=== PATIENT | male | born 1955 | race Caucasian/White ===

== ENCOUNTER 2022-08-24 10:16 | Emergency (ER) | payer MEDICARE, OTHER, SELFPAY ==
[2022-08-24] VITALS (19 sets, daily range): BP systolic 136–171; BP diastolic 70–90; PULSE 58–80; RESP 14; TEMP 36.4; O2SAT 94–100; BMI 19.3
--- NOTE | 2022-08-24 10:22 | DI.CT.S_ITS ---
PROCEDURE: CT CERVICAL SPINE WO CON INDICATIONS: fall head injury,on eliquis TECHNIQUE: Noncontrast 3 mm thick sections acquired from the skull base to the T4 level. Sagittal and coronal reformats were then constructed. For radiation dose reduction, the following was used: automated exposure control, adjustment of mA and/or kV according to patient size. COMPARISON: None. FINDINGS: Image quality: Excellent. Bones: No fractures or dislocations. Visualized superior ribs are intact. Soft tissues: Prevertebral soft tissues are normal in thickness. No paravertebral hematomas. No apical pneumothoraces. IMPRESSION: No acute, displaced fracture or traumatic subluxation. Dictated by: Bony Bell M.D. on 08/24/2022 at 11:00 Approved by: Bony Bell M.D. on 08/24/2022 at 11:02
--- NOTE | 2022-08-24 10:22 | DI.CT.S_ITS ---
PROCEDURE: CT HEAD/BRAIN WO CON INDICATIONS: fall head injury,on eliquis TECHNIQUE: Noncontrast 4.5 mm thick angled axial sections acquired from the foramen magnum to the vertex, with coronal and sagittal reformats. For radiation dose reduction, the following was used: automated exposure control, adjustment of mA and/or kV according to patient size. COMPARISON: None. FINDINGS: Image quality: Excellent. CSF spaces: Basal cisterns are patent. No extra-axial fluid collections. Ventricles are normal in size and shape. Symmetric mild thickening of the anterior tentorium, likely artifact. Brain: No midline shift. No intracranial masses or hemorrhage. Tamayo-white matter interface is normal. Skull and face: Calvarium and visualized facial bones are intact, without suspicious lesions. Scalp contusion along the posterior calvarium. Sinuses: Trace layering fluid in the left maxillary sinus. IMPRESSION: Symmetric mild thickening of the anterior tentorium, possibly artifact. Tiny subdural hemorrhage is less likely. Consider interval CT in 4 hours, unless otherwise indicated. Posterior scalp contusion without underlying fracture. Dictated by: Bony Bell M.D. on 08/24/2022 at 10:53 Approved by: Bony Bell M.D. on 08/24/2022 at 11:00
--- NOTE | 2022-08-24 10:38 | ED_ITS ---
HPI - Head Injury <CARRIE Khalil - Last Filed: 08/31/22 11:12> General Chief complaint: Head Injury Stated complaint: fall, on Eliqus Time Seen by Provider: 08/24/22 10:36 Source: patient Mode of arrival: Ambulatory History of Present Illness HPI Narrative: This is a 67-year-old gentleman with history of atrial fibrillation and is anticoagulated on Eliquis who was outside playing pickleball when he fell backwards striking the posterior of his head on the ground. He denies loss of consciousness, midline neck pain, nausea, vomiting. He states that he has a wound on his scalp with a dressing covering it, but is no longer bleeding. He endorses some right-sided muscle pain. States that it was witnessed by lots of people unfortunately. He denies any weakness, numbness, tingling, fatigue, brain fog, vision changes, nausea or other changes at this time. States the only thing that is hurt is his pride and where he hit his head. He states that it bled quite a bit. Related Data Allergies Allergy/AdvReac Type Severity Reaction Status Date / Time No Known Drug Allergies Allergy Verified 08/24/22 10:23 Review of Systems <CARRIE Khalil - Last Filed: 08/31/22 11:12> Review of Systems ROS Unobtainable: All systems reviewed & are unremarkable except as noted in HPI and below Patient History <CARRIE Khalil - Last Filed: 08/31/22 11:12> Social History Smoking Status: Unknown if ever smoked Smoking Status: Unknown if ever smoked alcohol intake frequency: holidays/special occasions only Substance Use Type: does not use Exam <CARRIE Khalil - Last Filed: 08/31/22 11:12> Narrative Exam Narrative: Reviewed vitals signs and nursing notes. General: Pleasant, sitting upright, in no acute distress, well groomed, afebrile HEENT: symmetrical facial expressions, moist mucous membranes, neck is supple, no cervical spinal process tenderness to palpation, normal range of motion, mild muscle tenderness to the right trapezius CV: regular rate and rhythm, warm extremities Respiratory: normal work of breathing, without tachypnea or hypoxia. GI: abdomen soft, nondistended, without CVA tenderness bilaterally. MSK: moves all extremities, no weakness, normal tone, ambulatory without deficit Skin: brisk capillary refill, without rash, scalp with hematoma to the posterior scalp with large laceration underneath the superficial layer of tissue, this was cleansed with normal saline and found to have a large laceration underneath, this was sutured after anesthetizing with lidocaine with epi, patient tolerated this well. Neuro: clear speech and normal cognition, A&O x3, GCS 15, no focal motor or sensation deficits Initial Vital Signs Initial Vital Signs: Vital Signs Temperature 97.6 F 08/24/22 10:17 Pulse Rate 77 08/24/22 10:17 Respiratory Rate 14 08/24/22 10:17 Blood Pressure 154/90 H 08/24/22 10:17 Pulse Oximetry 95 08/24/22 10:17 Oxygen Delivery Method Room Air 08/24/22 10:17 <Carl Osuna DO - Last Filed: 08/25/22 01:40> Initial Vital Signs Initial Vital Signs: Vital Signs Temperature 97.6 F 08/24/22 10:17 Pulse Rate 77 08/24/22 10:17 Respiratory Rate 14 08/24/22 10:17 Blood Pressure 154/90 H 08/24/22 10:17 Pulse Oximetry 95 08/24/22 10:17 Oxygen Delivery Method Room Air 08/24/22 10:17 Procedures <CARRIE Khalil - Last Filed: 08/31/22 11:12> Laceration Repair Laceration 1: Site: scalp Size (cm): 6 Description: linear, irregular and clean Depth: simple, single layer Local Anesthetic: lidocaine 2% and with epi Amount of anesthesia used (mL): 5 Pre-repair: wound explored, irrigated extensively and deep structures intact Skin layer closed with: vicryl Skin layer suture size: 4-0 Number of sutures: 10 Technique: simple, interrupted Subcutaneous layer closed with: vicryl Subcutaneous layer suture size: 4-0 Scores <CARRIE Khalil - Last Filed: 08/31/22 11:12> [place] CT Head Rule Age <16 years old: No Patient on blood thinners: Yes Seizure after injury: No Exclusion: Patient meets exclusion criteria Nexus Score for C-Spine Focal Neurologic deficit present: No Midline spinal tenderness present: No Altered level of conciousness present: No Intoxication present: No Distracting Injury Present: No Nexus Criteria for C-spine: 0 <Carl Osuna DO - Last Filed: 08/25/22 01:40> [place] CT Head Rule Exclusion: Patient meets exclusion criteria Nexus Score for C-Spine Nexus Criteria for C-spine: 0 Course <CARRIE Khalil - Last Filed: 08/31/22 11:12> Orders Ordered: Discontinued Medications Diphtheria/Tetanus/Acell Pertussis (Tet,Diph,Pertuss(Acell),Vac/Pf 0.5 Ml Syringe) 0.5 ml IM .ONCE ONE Stop: 08/24/22 11:02 Last Admin: 08/24/22 11:13 Dose: 0.5 ml Documented By: FRANCESCA Prothrombin Complex Concent ( Human) 2,000 unit/Miscellaneous 80 mls @ 506.21 mls/hr IV NOW ONE; Protocol Stop: 08/24/22 16:56 Last Infusion: 08/24/22 17:45 Dose: 0 unit/kg/min, 0 mls/hr Documented By: Admin: 08/24/22 17:24 Dose: 3 unit/kg/min, 506.21 mls/hr Documented By: LEONA Lidocaine/Epinephrine (Lidocaine 2% W/Epi Inj) 20 ml INJ INTRA-OP ONE Stop: 08/24/22 10:58 Last Admin: 08/24/22 11:02 Dose: 20 ml Documented By: FRANCESCA Vital Signs Vital signs: Vital Signs - 8 hr 08/24/22 19:02 Pulse Rate 69 Blood Pressure 151/83 H Pulse Oximetry 100 Oxygen Delivery Method Room Air <Carl Osuna DO - Last Filed: 08/25/22 01:40> Orders Ordered: Discontinued Medications Diphtheria/Tetanus/Acell Pertussis (Tet,Diph,Pertuss(Acell),Vac/Pf 0.5 Ml Syringe) 0.5 ml IM .ONCE ONE Stop: 08/24/22 11:02 Last Admin: 08/24/22 11:13 Dose: 0.5 ml Documented By: FRANCESCA Prothrombin Complex Concent ( Human) 2,000 unit/Miscellaneous 80 mls @ 506.21 mls/hr IV NOW ONE; Protocol Stop: 08/24/22 16:56 Last Infusion: 08/24/22 17:45 Dose: 0 unit/kg/min, 0 mls/hr Documented By: Admin: 08/24/22 17:24 Dose: 3 unit/kg/min, 506.21 mls/hr Documented By: LEONA Lidocaine/Epinephrine (Lidocaine 2% W/Epi Inj) 20 ml INJ INTRA-OP ONE Stop: 08/24/22 10:58 Last Admin: 08/24/22 11:02 Dose: 20 ml Documented By: FRANCESCA Vital Signs Vital signs: Vital Signs - 8 hr 08/24/22 19:02 Pulse Rate 69 Blood Pressure 151/83 H Pulse Oximetry 100 Oxygen Delivery Method Room Air MDM - Head Injury <ODIN KhalilP - Last Filed: 08/31/22 11:12> Imaging Data CT scan - head: Radiologist's Impression: [address] [address] [address] Scan Report Signed Patient: Broderick Garcias MR#: [id number] : 1955 Acct:[id number] Age/Sex: 67 / M Date of Service: 08/24/22 Loc: ED Accession Number: [id number] ?? Procedure: CT head/brain wo con Ordering Provider: Zak Botello D.O. PROCEDURE:? CT HEAD/BRAIN WO CON INDICATIONS:? fall head injury,on eliquis TECHNIQUE:? Noncontrast 4.5 mm thick angled axial sections acquired from the foramen magnum to the vertex, with coronal and sagittal reformats.? For radiation dose reduction, the following was used:? automated exposure control, adjustment of mA and/or kV according to patient size.? COMPARISON:? None. FINDINGS:? Image quality:? Excellent.? CSF spaces:? Basal cisterns are patent.? No extra-axial fluid collections.? Ventricles are normal in size and shape.? Symmetric mild thickening of the anterior tentorium, likely artifact. ? Brain:? No midline shift.? No intracranial masses or hemorrhage.? Tamayo-white matter interface is normal.? ? Skull and face:? Calvarium and visualized facial bones are intact, without suspicious lesions.? Scalp contusion along the posterior calvarium. ? Sinuses:? Trace layering fluid in the left maxillary sinus. ? IMPRESSION:? Symmetric mild thickening of the anterior tentorium, possibly artifact.? Tiny subdural hemorrhage is less likely.? Consider interval CT in 4 hours, unless otherwise indicated. ? Posterior scalp contusion without underlying fracture. ?? Dictated by: Bony Bell M.D. on 08/24/2022 at 10:53 ? ? Approved by: Bony Bell M.D. on 08/24/2022 at 11:00 ? CT - cervical spine: Radiologist's Impression: [place] [id number] CT Scan Report Signed Patient: Broderick Garcias MR#: [id number] : 1955 Acct:[id number] Age/Sex: 67 / M Date of Service: 08/24/22 Loc: ED Accession Number: [id number] ?? Procedure: CT cervical spine wo con Ordering Provider: Zak Botello D.O. PROCEDURE:? CT CERVICAL SPINE WO CON ? INDICATIONS:? fall head injury,on eliquis ? TECHNIQUE:? Noncontrast 3 mm thick sections acquired from the skull base to the T4 level.? Sagittal and coronal reformats were then constructed.? For radiation dose reduction, the following was used:? automated exposure control, adjustment of mA and/or kV according to patient size.? ? COMPARISON:? None. ? FINDINGS:? Image quality:? Excellent.? ? Bones:? No fractures or dislocations.? Visualized superior ribs are intact.? ? Soft tissues:? Prevertebral soft tissues are normal in thickness.? No paravertebral hematomas.? No apical pneumothoraces.? ? ? IMPRESSION:? No acute, displaced fracture or traumatic subluxation. ? Dictated by: Bony Bell M.D. on 08/24/2022 at 11:00 ? ? Approved by: Bony Bell M.D. on 08/24/2022 at 11:02 ? Interval Head CT: Radiologist's Impression: [address] [address] [address] Scan Report Signed Patient: Broderick Garcias MR#: [id number] : 1955 Acct:[id number] Age/Sex: 67 / M Date of Service: 08/24/22 Loc: ED Accession Number: [id number] ?? Procedure: CT head/brain wo con Ordering Provider: Adriana Ibarra PROCEDURE:? CT HEAD/BRAIN WO CON ? INDICATIONS:? trauma, subdural hematoma vs artifact, on thinner ? TECHNIQUE:? Noncontrast 4.5 mm thick angled axial sections acquired from the foramen magnum to the vertex, with coronal and sagittal reformats.? For radiation dose reduction, the following was used:? automated exposure control, adjustment of mA and/or kV according to patient size.? ? COMPARISON:? Merged With [facility], CT, CT HEAD/BRAIN WO CON, 08/24/2022, 10:40. ? FINDINGS:? Image quality:? Excellent.? ? CSF spaces:? Slightly progressed thickening of the bilateral anterior tentorium ? Brain:? No midline shift.? No intracranial masses or hemorrhage.? Tamayo-white matter interface is normal.? ? Skull and face:? Calvarium and visualized facial bones are intact, without suspicious lesions.? Posterior scalp contusion. ? Sinuses:? Visualized sinuses and mastoids are clear.? ? IMPRESSION:? Slightly progressed thickening of the bilateral anterior tentorium, more concerning for tiny subdural hemorrhages. No mass effect.? No midline shift.? ? Dictated by: Bony Bell M.D. on 08/24/2022 at 14:03 ? ? Approved by: Bony Bell M.D. on 08/24/2022 at 14:05 ? MDM Narrative Medical decision making narrative: Chief Complaint: Fall, head injury Primary historian: Patient Multiple etiologies for patient's complaint considered including, but not limited to: Intracranial hemorrhage, cervical spine fracture, skull fracture, muscle strain, scalp laceration, contusion I have independently reviewed the patient's vital signs and nursing notes as well as prior records if available. My interpretation of imaging: CT head does not show acute fracture however it does show symmetric mild thickening of the anterior tentorium which could possibly be artifact. Tiny subdural hemorrhage is less likely, we will consider interval CT in 4 hours due to history anticoagulated status. CT C-spine is negative for acute, displaced fracture or traumatic subluxation. Course of care: Suture repair was completed, patient had a large laceration to the posterior scalp approximately 6 cm, 10 sutures were placed patient tolerated well. Use Vicryl so patient understands these are dissolvable. Discussed concussive symptoms and return to activity planning for head injury. Patient understands to decrease his physical mental stimulation over the next few days he was symptom-free. He currently does not have vision changes, dizziness, headache, nausea, midline neck pain or other complaint. He has denied pain medication. His tetanus vaccination was updated today. Interval head CT scheduled for 1400, patient given level 9 soda and is reading, denies any complaint at this time, denies the need for food. 1200: Reassessed patient, he denies any changes, denies having a headache at this time. He is resting comfortably. 1300: Patient denies having any changes to his symptoms, he is comfortably resting 1400: Patient denies any symptom change, is resting comfortably, CT here to take him for interval CT scan [address] shows slightly progress thickening of the bilateral anterior tentorium, more concerning for tiny subdural hemorrhages with no mass effect and no midline shift. Patient was updated about this. He is had no neuro changes and his neurologic exam is unremarkable. Consult placed to [facility] Neurosurgery, images pushed for review?, awaiting callback 1615 no call back from [facility] yet, they have been caused 1 time without response. Call out to [facility] Neurosurgery for consultation, pending call back [address] [facility] Dr. Rivas from Neurosurgery called back and case was shared with him, he recommends reversing his Eliquis with Kcentra, another interval CT at 04:00 hours and if no changes then hold his Eliquis for 1 week and follow-up, 3rd CT was ordered. Patient was ordered a diet as he has been here most of the day, states that he is hungry, denies any neurologic changes, headache, dizziness or other symptoms. 1700 ordered Kcentra, patient is receiving this now, he wishes to have his CT sooner than later, states that he is hungry, wishes to go home, denies any symptom changes. [address] for repeat head CT 1800-patient signed out to Dr. Osuna for follow-up on 3rd CT, [facility] would like a call back with a plan of care based recent CT. Social considerations that may affect disposition: none Questions are addressed and there is agreement with the plan and for follow-up. I consulted with the ED attending physician Dr. Botello as needed for higher level of care considerations and they were available for discussion and recommendations regarding plan of care and diagnostic testing. Patient is appropriate for outpatient management. <Carl Osuna, DO - Last Filed: 08/25/22 01:40> [facility] Narrative Medical decision making narrative: Chief Complaint: Fall, head injury Primary historian: Patient Multiple etiologies for patient's complaint considered including, but not limited to: Intracranial hemorrhage, cervical spine fracture, skull fracture, muscle strain, scalp laceration, contusion I have independently reviewed the patient's vital signs and nursing notes as well as prior records if available. My interpretation of imaging: CT head does not show acute fracture however it does show symmetric mild thickening of the anterior tentorium which could p ossibly be artifact. Tiny subdural hemorrhage is less likely, we will consider interval CT in 4 hours due to history anticoagulated status. CT C-spine is negative for acute, displaced fracture or traumatic subluxation. Course of care: Suture repair was completed, patient had a large laceration to the posterior scalp approximately 6 cm, 10 sutures were placed patient tolerated well. Use Vicryl so patient understands these are dissolvable. Discussed concussive symptoms and return to activity planning for head injury. Patient understands to decrease his physical mental stimulation over the next few days he was symptom-free. He currently does not have vision changes, dizziness, headache, nausea, midline neck pain or other complaint. He has denied pain medication. His tetanus vaccination was updated today. Interval head CT scheduled for 1400, patient given level 9 soda and is reading, denies any complaint at this time, denies the need for food. 1200: Reassessed patient, he denies any changes, denies having a headache at this time. He is resting comfortably. 1300: Patient denies having any changes to his symptoms, he is comfortably resting 1400: Patient denies any symptom change, is resting comfortably, CT here to take him for interval CT scan [address] shows slightly progress thickening of the bilateral anterior tentorium, more concerning for tiny subdural hemorrhages with no mass effect and no midline shift. Patient was updated about this. He is had no neuro changes and his neurologic exam is unremarkable. Consult placed to [facility] Neurosurgery, images pushed for review?, awaiting callback 1615 no call back from [facility] yet, they have been caused 1 time without response. Call out to [facility] Neurosurgery for consultation, pending call back [address] [facility] Dr. Rivas from Neurosurgery called back and case was shared with him, he recommends reversing his Eliquis with Kcentra, another interval CT at 04:00 hours and if no changes then hold his Eliquis for 1 week and follow-up, 3rd CT was ordered. Patient was ordered a diet as he has been here most of the day, states that he is hungry, denies any neurologic changes, headache, dizziness or other symptoms. 1700 ordered Kcentra, patient is receiving this now, he wishes to have his CT sooner than later, states that he is hungry, wishes to go home, denies any symptom changes. [address] for repeat head CT 1800-patient signed out to Dr. Osuna for follow-up on 3rd CT, [facility] would like a call back with a plan of care based recent CT. 1800 (Enrrique) - I have reviewed clinical course and performed an brief independent exam. No new findings. CT pending 1899 - No change in CT. 2010 - discussed with [facility]. No eliquis for 7 days. No indication for reversal agent. Typical return precautions. Follow up with PCP. No need for repeat imaging unless clinical change. No need for Neurosurg follow up. Social considerations that may affect disposition: none Questions are addressed and there is agreement with the plan and for follow-up. I consulted with the ED attending physician Dr. Botello/Enrrique as needed for higher level of care considerations and they were available for discussion and recommendations regarding plan of care and diagnostic testing. Patient is appropriate for outpatient management. <Carl Osuna, DO - Last Filed: 08/25/22 01:40> Critical Care Time Critical Care Time: Yes Total Critical Care Time: 45 Attestation: The high probability of a clinically significant, sudden or life threatening deterioration of the [NV] system(s) required my full and direct attention, intervention and personal management. The aggregate critical care time was [45] minutes. This time is in addition to time spent performing reported procedures but includes the following: [x] Data Review and interpretation [x] Patient assessment and monitoring of vital signs [x] Documentation [x] Medication orders and management Discharge Plan Departure Patient Disposition: Home Clinical Impression: Muscle strain, Subdural hemorrhage, Anticoagulant long-term use Closed head injury Qualifiers: Encounter type: initial encounter Qualified Code(s): S09.90XA - Unspecified injury of head, initial encounter Laceration of scalp Qualifiers: Encounter type: initial encounter Qualified Code(s): S01.01XA - Laceration without foreign body of scalp, initial encounter Instructions: Concussion, DI for Closed Head Injury, Subdural Hematoma Activity Restrictions/Additional Instructions: *You have been diagnosed with a closed head injury, likely a concussion, scalp laceration and subdural hematoma/hemorrhage.The sutures are dissolvable, after 5-7 days, this skin should be healed in where if these start coming out it is okay. Please keep the wound covered with something nonstick, antibiotic ointment is okay and a Band-Aid at minimum. I will call you with the specific follow up instructions from [facility] Neurosurgery. *DO NOT TAKE YOUR ELIQUIS for 7 days, then resume normal dosing. Otherwise, please continue to take your regular medications as directed. [ ] New medication prescriptions sent to your pharmacy: [ ] [ ] New medication written as a paper prescription [x ] No new medications given *Please call and schedule follow up with your primary care provider in 2-3 days, at least for an update. Let them know you were seen in the Emergency Department for the above problem. We will electronically transmit a record of today's note if your PCP or specialist is in our system. *If you do not have a primary care provider please contact [phone] to establish care with one of the [facility] primary care providers. *Return to the Emergency Department for worsening symptoms, inability to keep liquids down, fever greater than 101F, chills, or other concerning symptom. Referrals: Miscellaneous,[facility] [Primary Care Provider] - Stand Alone Forms: Patient Portal/API <Carl Osuna DO - Last Filed: 08/25/22 01:40> [facility] ED Attending Abdulkadir Attestation: I was immediately available in the department for consultation. Documentation has been reviewed. I agree with assessment and plan.
[2022-08-24] MEDS: LIDOCAINE 2% W/EPI INJ 20 ML INJ (11:02)
[2022-08-24] MEDS: TET,DIPH,PERTUSS(ACELL),VAC/PF 0.5 ML SYRINGE IM (11:13)
--- NOTE | 2022-08-24 14:00 | DI.CT.S_ITS ---
PROCEDURE: CT HEAD/BRAIN WO CON INDICATIONS: trauma, subdural hematoma vs artifact, on thinner TECHNIQUE: Noncontrast 4.5 mm thick angled axial sections acquired from the foramen magnum to the vertex, with coronal and sagittal reformats. For radiation dose reduction, the following was used: automated exposure control, adjustment of mA and/or kV according to patient size. COMPARISON: [facility], CT, CT HEAD/BRAIN WO CON, 08/24/2022, 10:40. FINDINGS: Image quality: Excellent. CSF spaces: Slightly progressed thickening of the bilateral anterior tentorium Brain: No midline shift. No intracranial masses or hemorrhage. Tamayo-white matter interface is normal. Skull and face: Calvarium and visualized facial bones are intact, without suspicious lesions. Posterior scalp contusion. Sinuses: Visualized sinuses and mastoids are clear. IMPRESSION: Slightly progressed thickening of the bilateral anterior tentorium, more concerning for tiny subdural hemorrhages. No mass effect. No midline shift. Dictated by: Bony Bell M.D. on 08/24/2022 at 14:03 Approved by: Bony Bell M.D. on 08/24/2022 at 14:05
--- NOTE | 2022-08-24 17:15 | DI.CT.S_ITS ---
PROCEDURE: CT HEAD/BRAIN WO CON INDICATIONS: interval CT for subdural hematoma TECHNIQUE: Noncontrast 4.5 mm thick angled axial sections acquired from the foramen magnum to the vertex, with coronal and sagittal reformats. For radiation dose reduction, the following was used: automated exposure control, adjustment of mA and/or kV according to patient size. COMPARISON: [facility], CT, CT HEAD/BRAIN WO CON, 08/24/2022, 13:58. [facility], CT, CT HEAD/BRAIN WO CON, 08/24/2022, 10:40. FINDINGS: Image quality: Excellent. CSF spaces: Basal cisterns are patent. No extra-axial fluid collections. Ventricles are normal in size and shape. Brain: No midline shift. No intracranial masses. Tamayo-white matter interface is normal. Previously described thickening of the anterior to tentorium bilaterally is not significantly changed. No new acute hemorrhage identified. No evidence for mass effect. Skull and face: Calvarium and visualized facial bones are intact, without suspicious lesions. Sinuses: Visualized sinuses and mastoids are clear. IMPRESSION: Stable CT evaluation of the brain. No significant change in appearance of slightly thickened bilateral anterior tentorium which may represent tiny subdural hemorrhages. No evidence for mass or mass effect. Dictated by: Keo Prado M.D. on 08/24/2022 at 18:51 Approved by: Keo Prado M.D. on 08/24/2022 at 18:53
[2022-08-24] MEDS: PROTHROMBIN CPLX(PCC)4FACT 2,000 UNIT in ISOOSMOTIC VEHICLE 0 ML 506.21 UNIT IV (17:24)
== END 2022-08-24 19:51 | disposition home or self-care (01) ==
PROVIDERS: Emergency Provider Emergency Medicine
DX: S06.5X0A Traumatic subdural hemorrhage without loss of consciousness, initial encounter (principal); S01.01XA Laceration without foreign body of scalp, initial encounter; S29.012A Strain of muscle and tendon of back wall of thorax, initial encounter; W18.30XA Fall on same level, unspecified, initial encounter; Z79.01 Long term (current) use of anticoagulants
CPT/HCPCS: 12002; 36415; 70450; 72125; 90471; 96365; 99284; 99291; 90715; J7168

== ENCOUNTER → 2023-10-16 09:41 | Outpatient (CLI) | payer MEDICARE, OTHER, SELFPAY ==
--- NOTE | 2023-10-16 09:45 | DI.RAD.S_ITS ---
PROCEDURE: XR HIP W PEL IF DONE RT 2V INDICATIONS: HIP PAIN TECHNIQUE: AP pelvis with lateral view(s) of the right hip(s). COMPARISON: None. FINDINGS: Bones: No fractures or dislocations. Pelvic ring appears intact. No suspicious bony lesions. Bilateral hip arthroplasties. Hardware is intact without hardware fracture or periprosthetic lucency to suggest loosening. Alignment is stable. Soft tissues: The visualized bowel gas pattern is normal. No suspicious soft tissue calcifications. IMPRESSION: Bilateral hip arthroplasties. Dictated by: Yumiko Marcum M.D. on 10/16/2023 at 19:23 Approved by: Yumiko Marcum M.D. on 10/16/2023 at 19:23
--- NOTE | 2023-10-16 09:46 | DI.RAD.S_ITS ---
PROCEDURE: XR LUMBAR SPINE 2-3V INDICATIONS: BACK PAIN TECHNIQUE: 3 views of the lumbar spine were acquired. COMPARISON: None. FINDINGS: Bones: 5 [id number] vertebrae are present. There is normal bony alignment. No vertebral body compression fractures. No suspicious bony lesions. Partially visualized hip arthroplasties. Moderate to severe bilateral multilevel degenerative disc and foraminal narrowing are present most severe from L3-4 through L5-S1. Anterior osteophytes are present. Soft tissues: Overlying bowel gas pattern is normal. No suspicious soft tissue calcifications. IMPRESSION: Multilevel degenerative changes most severe from L3-4 through L5-S1. Dictated by: Yumiko Marcum M.D. on 10/16/2023 at 19:24 Approved by: Yumiko Marcum M.D. on 10/16/2023 at 19:25
--- NOTE | 2023-10-16 09:46 | DI.RAD.S_ITS ---
PROCEDURE: XR KNEE RT 1TO2V INDICATIONS: KNEE PAIN TECHNIQUE: 3 views of the knee were acquired. COMPARISON: None. FINDINGS: Bones: No fractures or dislocations. No suspicious bony lesions. Mild tricompartmental degenerative change most severe medially. No erosions. Soft tissues: [id number] joint effusion. No suspicious soft tissue calcifications. IMPRESSION: Early tricompartmental arthritic changes. Dictated by: Yumiko Marcum M.D. on 10/16/2023 at 19:24 Approved by: Yumiko Marcum M.D. on 10/16/2023 at 19:24
== END ==
LOC: RAD 09:44
PROVIDERS: PCP Student in an Organized Health Care Education/Training Program; Referring Provider Student in an Organized Health Care Education/Training Program; Visit Provider Student in an Organized Health Care Education/Training Program
DX: M47.816 Spondylosis without myelopathy or radiculopathy, lumbar region (principal); M47.817 Spondylosis without myelopathy or radiculopathy, lumbosacral region; M25.50 Pain in unspecified joint; M25.461 Effusion, right knee; Z96.643 Presence of artificial hip joint, bilateral
CPT/HCPCS: 72100; 73502; 73560

== ENCOUNTER → 2023-11-06 15:03 | Outpatient (CLI) | payer MEDICARE, OTHER, SELFPAY ==
--- NOTE | 2023-11-06 15:04 | DI.MRI.S_ITS ---
PROCEDURE: MR LUMBAR SPINE WO CON INDICATIONS: Low back pain, unspecified TECHNIQUE: Noncontrast sagittal T1 spin echo and T2 fast echo, sagittal STIR, and T2 fast spin echo through the lumbar spine. In cases with scoliosis, additional coronal T2 fast spin echo may be performed. COMPARISON: [facility], CR, XR LUMBAR SPINE 2-3V, 10/16/2023, 9:55. FINDINGS: Image quality: Excellent Mild levoscoliosis of the lumbar spine, centered at L4. Straightening of the lumbar spine. Mild retrolisthesis of L3 on L4, L4-L5, and L5 on S1. Multilevel fibrovascular endplate change, most pronounced and mild at L5-S1. Multilevel disc desiccation disc bulge. Vertebral body heights are well-maintained. Conus terminates at L1-2, and is unremarkable Right neural foraminal stenosis: Moderate at L4-5, moderate at L5-S1. Left neural foraminal stenosis: Mild at L3-4, moderate at L4-5, and L5-S1 Axial images: T12-L1: Disc bulge. Mild bilateral facet arthropathy. No central canal stenosis. L1-2: Disc bulge. Mild bilateral facet arthropathy. No central canal stenosis. L2-3: Mild disc bulge. Mild bilateral facet arthropathy. No central canal stenosis. L3-4: Posterior disc uncovering. No central canal stenosis. L4-5: Mild bilateral facet arthropathy. Disc bulge. No central canal stenosis. L5-S1: Disc bulge. Mild bilateral facet arthropathy. No central canal stenosis. Visualized sacrum is intact. No abdominal aortic aneurysm. IMPRESSION: 1. Multilevel degenerative changes of the lumbar spine, most pronounced at L5-S1, where there is moderate bilateral neural foraminal stenosis. 2. No significant central canal stenosis in the lumbar spine. Dictated by: Fariba Gregory M.D. on 11/06/2023 at 22:45 Approved by: Fariba Gregory M.D. on 11/06/2023 at 22:55
== END ==
LOC: MRI 15:03
PROVIDERS: PCP Student in an Organized Health Care Education/Training Program; Referring Provider Student in an Organized Health Care Education/Training Program; Visit Provider Student in an Organized Health Care Education/Training Program
DX: M47.817 Spondylosis without myelopathy or radiculopathy, lumbosacral region (principal); M48.07 Spinal stenosis, lumbosacral region; M47.816 Spondylosis without myelopathy or radiculopathy, lumbar region; M54.50 Low back pain, unspecified
CPT/HCPCS: 72148